=== PATIENT | female | born 1970 | race Two or more races ===

== ENCOUNTER 2020-10-08 05:00 | Day surgery (SDC) | payer OTHER | END 2020-10-08 15:35 | disposition home or self-care (01) | LOC: CIR.AMB 05:00 | PROVIDERS: ATTEND Colon & Rectal Surgery | DX: K60.1 Chronic anal fissure (principal); Z20.822 Contact with and (suspected) exposure to COVID-19 ==

== ENCOUNTER 2025-01-21 07:03 | Day surgery (SDC) | payer OTHER ==
[2025-01-21] MEDS ORDERED: ONDANSETRON HCL 2 MG/ML VIAL IV ONE (10:45)
[2025-01-21] MEDS ORDERED: MIDAZOLAM HCL 2 MG/2 ML VIAL IV ONE (10:45)
[2025-01-21] MEDS ORDERED: fentaNYL CITRATE 50 MCG/ML AMPUL IV PUSH ONE (10:45)
[2025-01-21] MEDS ORDERED: DIPHENHYDRAMINE HCL 50 MG/ML VIAL 1ML IV ONE (10:45)
== END 2025-01-21 11:45 | disposition home or self-care (01) ==
LOC: AMB-ENDOS 07:03 → CIR.AMB 13:15
PROVIDERS: ATTEND Colon & Rectal Surgery
DX: D12.0 Benign neoplasm of cecum (principal); D12.4 Benign neoplasm of descending colon; K63.5 Polyp of colon; Z86.0100 Personal history of colon polyps, unspecified; R19.4 Change in bowel habit; Z12.11 Encounter for screening for malignant neoplasm of colon; K57.30 Diverticulosis of large intestine without perforation or abscess without bleeding